=== PATIENT | female | born 1960 ===

== ENCOUNTER 2017-08-17 06:51 | Day surgery (SDC) | payer OTHER ==
[~2017-08-17] VITALS: Ht 160 cm; Wt 85.3 kg
[2017-08-17] VITALS (12 sets, daily range): BP systolic 96–130; BP diastolic 53–77
[2017-08-17] MEDS ORDERED: MULTIVITAMINS1 EAC2 ORAL (08:01)
[2017-08-17] MEDS ORDERED: IRON325 M1 PO (08:01)
[2017-08-17] MEDS ORDERED: HYDROCHLOROTHIA25 MG ORAL (08:01)
[2017-08-17] MEDS ORDERED: ATORVASTATIN CA20 MG ORAL (08:01)
[2017-08-17] MEDS ORDERED: Ropivacaine 5mg/ml Vial 30ml INJ ONE (08:40)
--- NOTE | 2017-08-17 08:51 | Pre-Procedure Note/Attestation ---
Pre-Procedure Note/Attestation Complete Prior to Procedure Planned Procedure: left Procedure Narrative: Left knee arthroscopy with partial meniscectomy and chondroplasty Indications for Procedure Pre-Operative Diagnosis: Left knee medial mensical tear and internal derangement Attestation I attest that I discussed the nature of the procedure; its benefits; risks and complications; and alternatives (and the risks and benefits of such alternatives ), prior to the procedure, with the patient (or the patient's legal door to door sales representative). I attest that, if there was a reasonable possibility of needing a blood transfusion, the patient (or the patient's legal door to door sales representative) was given the [facility] standardized written summary, pursuant to the Hipolito Savage Blood Safety Act ([place] Health and Safety Code # 1645, as amended). I attest that I re-evaluated the patient just prior to the surgery and that there has been no change in the patient's H&P, except as documented below: Moose Chacon MD Aug 17, 2017 08:51
--- NOTE | 2017-08-17 08:54 | Operative Note - PDOC ---
Operative Note Operative Note Date of Operation/Procedure: Aug 17, 2017 Chief Complaint: Left knee pain and swelling with mechanical symptoms Pre-op Diagnosis: Left knee lateral mensical tear and internal derangement Procedure: Left knee arthroscopic partial lateral meniscectomy Post-op Diagnosis: Left knee lateral meniscal tear Post-op Diagnosis: same as pre-op Surgeon: Yana Chacon MD Anesthesiologist: Loco Anesthesia: general Specimen: none Complications: none Condition: stable Estimated Blood Loss: minimal Drains: none Implant(s) used?: No Indications for Procedure Patient has left knee internal derangement symptoms that is refractory to conservative treatment. Description of Procedure See dictation for full procedure Moose Chacon MD Aug 17, 2017 08:54 Moisés Adan MD Aug 17, 2017 10:44
[2017-08-17] MEDS ORDERED: Alfentanil 2ml Inj ONE (10:30)
[2017-08-17] MEDS ORDERED: Dexamethasone 4mg/ml vial ONE (10:30)
[2017-08-17] MEDS ORDERED: fentaNYL 100 mcg/2 mL IV ONE (10:30)
[2017-08-17] MEDS ORDERED: LR 1000ml ONE (10:30)
[2017-08-17] MEDS ORDERED: Propofol 200mg/20ml IV ONE (10:30)
[2017-08-17] MEDS ORDERED: Lidocaine 1% MPF 10mg/ml 5ml ONE (10:30)
[2017-08-17] MEDS ORDERED: LR 1000ml 1,000 ML IVLG SCH (10:36)
--- NOTE | 2017-08-17 10:36 | Anethesia Preoperative Eval ---
Anesthesia Pre-op PMH/ROS General Date of Evaluation: Aug 17, 2017 Time of Evaluation: 10:31 Anesthesiologist: Loco ASA Score: ASA 3 Mallampati Score Class I : Soft palate, uvula, fauces, pillars visible Class II: Soft palate, uvula, fauces visible Class III: Soft palate, base of uvula visible Class IV: Only hard plate visible Mallampati Classification: Class II Surgeon: Ines Diagnosis: L Knee Pain Surgical Procedure: L Knee Arthroscopy Anesthesia History: none Family History: no anesthesia problems Allergies: Coded Allergies: No Known Allergies (Unverified , 08/17/17) Medications: see eMAR Past Medical History Cardiovascular: Reports: HTN, other - HL Other: obesity - BMI 35 PSxH Narrative: Bilateral CTR Anesthesia Pre-op Phys. Exam Physician Exam Last Vital Signs Date Time Temp Pulse Resp B/P (MAP) Pulse Ox O2 Delivery O2 Flow Rate FiO2 08/17/17 07:46 98.5 74 18 130/77 96 Room Air 98.5 Constitutional: NAD Neurologic: CN 2-12 intact Cardiovascular: RRR Respiratory: CTA Gastrointestinal: S/NT/ND Airway Exam Mallampati Score: Class II MO: full ROM: limited Teeth: intact Anesthesia Pre-op A/P Risk Assessment & Plan Assessment: ASA 3 Plan: GA, BIS Status Change Before Surgery: No Pre-Antibiotics Dru Gram Ancef IV Given Within 1 Hr of Incision: Yes Time Given: 10:46 Moisés Adan MD Aug 17, 2017 10:36
[2017-08-17] MEDS ORDERED: Acetaminophen (Non formulary) 100 ML IV ONE (10:45)
[2017-08-17] MEDS ORDERED: Atropine Inj 1mg/10ml Syr IV PRN (10:45)
[2017-08-17] MEDS ORDERED: DiphenhydrAMINE 50mg/ml Inj IVP PRN (10:45)
[2017-08-17] MEDS ORDERED: HYDROcodone/Acetamin 7.5/325 tab ORAL PRN (10:45)
[2017-08-17] MEDS ORDERED: oxyCODONE HCL/Acetaminophen 5/325mg ORAL PRN (10:45)
[2017-08-17] MEDS ORDERED: fentaNYL 100 mcg/2 mL IV PRN (10:45)
[2017-08-17] MEDS ORDERED: Hydromorphone 0.5mg/0.5ml inj IVP PRN (10:45)
[2017-08-17] MEDS ORDERED: Labetalol 5mg/ml 20ml vial IV PRN (10:45)
[2017-08-17] MEDS ORDERED: Midazolam 2mg/2ml Inj IVP PRN (10:45)
[2017-08-17] MEDS ORDERED: Norco 5mg/325mg tab ORAL PRN (10:45)
[2017-08-17] MEDS ORDERED: Ketorolac 30mg Inj IV PRN ×2 (10:45)
[2017-08-17] MEDS ORDERED: LORazepam Inj 2mg/ml 1ml IV PRN (10:45)
--- NOTE | 2017-08-17 11:12 | Immediate Post-Op Evaluation ---
Immediate Post-Op Evalulation Immediate Post-Op Evalulation Procedure: L Knee Arthroscopy, Medial Menisectomy Date of Evaluation: Aug 17, 2017 Time of Evaluation: 11:54 IV Fluids: 700 LR Blood Products: 0 Estimated Blood Loss: 8 Urinary Output: 0 Blood Pressure Systolic: 96 Blood Pressure Diastolic: 53 Pulse Rate: 62 Respiratory Rate: 16 O2 Sat by Pulse Oximetry: 97 Temperature (Fahrenheit): 97 Pain Score (1-10): 2 Nausea: No Vomiting: No Complications 0 Patient Status: awake, reacts, patent, extubated, none Hydration Status: adequate Dru Gram Ancef IV Given Within 1 Hr of Incision: Yes Time Given: 10:46 Moisés Adan MD Aug 17, 2017 11:12
--- NOTE | 2017-08-17 11:13 | 48 Hour Post Anesthesia Eval ---
Post Anesthesia Evaluation Procedure: L Knee Arthroscopy, Medial Menisectomy Date of Evaluation: Aug 17, 2017 Time of Evaluation: 14:12 Blood Pressure Systolic: 132 0: 87 Pulse Rate: 64 Respiratory Rate: 16 Temperature (Fahrenheit): 98.2 O2 Sat by Pulse Oximetry: 98 Airway: patent Nausea: No Vomiting: No Pain Intensity: 0 Hydration Status: adequate Cardiopulmonary Status: Stable Mental Status/LOC: patient returned to baseline Follow-up Care/Observations: 0 Post-Anesthesia Complications: 0 Follow-up care needed: ready to discharge Moisés Adan MD Aug 17, 2017 11:13
[2017-08-17] MEDS ORDERED: NS Irrig 4000ml IRRIG ONE (11:18)
--- NOTE | 2017-08-19 18:00 | Operative Note - Dictated ---
DATE OF OPERATION: 08/17/2017 PREOPERATIVE DIAGNOSIS: Left knee lateral meniscus tear. POSTOPERATIVE DIAGNOSIS: Left knee anterior horn rim tear of the anterior meniscus. PROCEDURE: Left knee arthroscopy with partial anterolateral meniscectomy. SURGEON: Moose Chacon M.D. SCHOOL SECRETARY: None. ANESTHESIA: General by Dr. Moisés Adan. BLOOD LOSS: None. DRAINS: None. COMPLICATIONS: None. INDICATION FOR PROCEDURE: The patient sustained an injury to the left knee, developed mechanical symptoms and failed to improve. Diagnostic studies were obtained, which correlated with the patient's symptoms. Therefore, it was felt the patient would benefit from surgery. Risks, benefits, and alternatives of the surgery were discussed with the patient. Risks including, but not limited to infection, nerve damage, stiffness, continued pain, need for revision surgery, blood clots, etc. were reviewed. The patient did understand the risks and wished to proceed. OPERATIVE FINDINGS: Examination under anesthesia demonstrated stable knee without ligamentous laxity. She had full range of motion. Operative arthroscopic evaluation of the knee demonstrated some mild softening of the medial tibial and lateral tibial plateau. No evidence of significant chondromalacia in all 3 compartments. ACL and PCL were intact. The medial meniscus was intact. Lateral meniscus demonstrated a rim type bucket-handle tear, which is nonrepairable as there is down on the anterior horn of the lateral meniscus. DESCRIPTION OF PROCEDURE: The patient was identified by himself and the left lower extremity was marked as correct operative site. The patient was then taken down to the operating room and placed supine position, underwent adequate anesthesia. The patient was given 2 g of Ancef IV. Prior to skin incision, a time-out was performed confirming left lower extremity is the correct operative site. Next, the left lower extremity was prepped and draped in the usual sterile fashion. Next, a standard anterior and lateral portal was then created. An 18-gauge needle was used to place the anterior medial portal. Next, diagnostic arthroscopy was performed and the above findings were noted. Next, a shaver was then introduced into the lateral compartment where resection of the lateral meniscus tear was performed. Once this was completed, an ArthroCare wand was used to clear the edges. Next, it was probed and noted to be stable. No evidence of further tearing. All these debris were evacuated and the the scope was withdrawn, the fluid extravasated. Skin incisions were closed in sterile fashion. The knee was injected with 10 mL of ropivacaine. Dry sterile dressings were then applied. The patient was awakened from anesthesia and taken to PACU with no complications. Moose Chacon M.D. DR: Espinoza JOB#: [id number] CC:
== END 2017-08-17 14:15 | disposition home or self-care (01) ==
LOC: SUR 06:51
DX: S83.282A Other tear of lateral meniscus, current injury, left knee, initial encounter (principal); I10 Essential (primary) hypertension; X58.XXXA Exposure to other specified factors, initial encounter; Y93.9 Activity, unspecified; Y92.9 Unspecified place or not applicable
CPT/HCPCS: 29881; J1100; J1885; J2250; J2405; J2704; J2795; J3010; J3490; J7120; 94003; 94150